=== PATIENT | female | born 1980 | race African-American/Black ===

== ENCOUNTER 2016-06-07 20:25 | Emergency (ER) | payer OTHER ==
[~2016-06-07] VITALS: Ht 165.1 cm; Wt 99.8 kg
[~2016-06-07 20:25] MED LIST: ANUSOL HC-HEMOR1 SUP RC; AUGMENTIN 875 M1 TAB PO; AUGMENTIN 875-1 EACH PO; FIORICET 50-301 EACH PO; PERCOCET 325 MG1 TA2 PO
--- NOTE | 2016-06-07 21:01 | ED GENERAL ADULT ---
History of Present Illness General Chief Complaint: Dizziness Stated Complaint: DIZZY Source: patient Exam Limitations: no limitations Vital Signs & Intake/Output Vital Signs & Intake/Output Vital Signs Date Time Temp Pulse Resp B/P Pulse O2 O2 Flow FiO2 Ox Delivery Rate 06/07 2230 96.8 65 18 109/70 100 Room Air 06/07 2125 Room Air 06/07 2034 96.9 68 18 110/71 100 Room Air Allergies Coded Allergies: NO KNOWN ALLERGIES (02/16/16) Reconcile Medications Meclizine HCl 25 MG TABLET 1 TAB PO Q8 PRN dizziness Triage Note: PT TO ED WITH INTERMITTENT DIZZINESS SINCE YESTERDAY. DENIES CP, SOB, MULLEN. PT'S SIG OTHER IS ALSO BEING SEEN IN THE ED WELL. Triage Nurses Notes Reviewed? yes : No Patient currently breastfeeds: No HPI: Patient is a 36-year-old female presents complaining of off balance sensation. Patient reports symptoms started yesterday. Symptoms are currently minimal. Patient reports the episodes occur primarily when she goes from a lying to standing position and sometimes from a sitting to standing position. Patient feels like she is going to fall over when ambulating after she changes positions. Pain is 0 out of 10. Patient denies chest pain, difficulty breathing, nausea, vomiting, headache. Patient had similar symptoms approximately 3 years ago after giving that lasted for 4-5 months, has not had any episodes since then. (NATALIE BOX) Past History Travel History Traveled to [place] past 21 day No Medical History Any Pertinent Medical History? see below for history Neurological: dizziness EENT: NONE Cardiovascular: NONE Respiratory: NONE Gastrointestinal: HEMMORHOIDS Hepatic: NONE Renal: NONE Musculoskeletal: NONE Psychiatric: NONE Endocrine: NONE Blood Disorders: NONE Cancer(s): NONE SAFETY SECURITY OFFICER/Reproductive: NONE Surgical History Surgical History: non-contributory Psychosocial History What is your primary language Turkish Tobacco Use: Current Daily Use Daily Tobacco Use Amount/Type: => 5 Cigarettes daily ETOH Use: occasional use Illicit Drug Use: denies illicit drug use Family History Hx Contributory? No (NATALIE BOX) Review of Systems Review of Systems Constitutional: Denies: chills, fever. EENTM: Denies: blurred vision, visual changes. Respiratory: Denies: cough, short of breath. Cardiovascular: Denies: chest pain, syncope. GI: Reports: nausea. Denies: abdominal pain, vomiting. Musculoskeletal: Reports: no symptoms. Skin: Reports: no symptoms. Neurological/Psychological: Denies: headache, numbness, unable to move lower ext, unable to move upper ext, weakness. Hematologic/Endocrine: Denies: bruising, bleeding. Immunologic/Allergic: Denies: splenectomy. (NATALIE BOX) Physical Exam Physical Exam General Appearance: well developed/nourished, alert, awake Head: atraumatic, normal appearance Eyes: Bilateral: normal appearance, PERRL, EOMI. Ears, Nose, Throat: normal pharynx, normal ENT inspection, hearing grossly normal Neck: normal inspection, supple, full range of motion Respiratory: normal breath sounds, chest non-tender, no respiratory distress, lungs clear Cardiovascular: regular rate/rhythm (no murmur) Gastrointestinal: soft, non-tender Back: normal inspection, normal range of motion Extremities: normal inspection, normal capillary refill, normal range of motion, no edema Neurologic/Psych: no motor/sensory deficits, awake, alert, oriented x 3, normal gait, normal mood/affect Skin: intact, normal color, warm/dry Lymphatic: no anterior cervical susan Core Measures ACS in differential dx? No CVA/TIA Diagnosis: No Severe Sepsis Present: No Septic Shock Present: No (NATALIE BOX) Progress Differential Diagnoses I considered the following diagnoses in my evaluation of the patient: vertigo central vs peripheral, electrolyte abnormality, orthostasis Plan of Care: Orders Procedure Date/time Status MISTAKE 06/08 2107 Active COMPREHENSIVE METABOLIC PANEL 06/08 2107 Complete CBC WITHOUT DIFFERENTIAL 06/08 2107 Complete URINE 06/07 2037 Complete Laboratory Tests 06/07/162122: Anion Gap 9, Estimated GFR > 60, BUN/Creatinine Ratio 13.3, Glucose 86, Calcium 9.5, Total Bilirubin 0.3, AST 20, ALT 39, Alkaline Phosphatase 76, Total Protein 7.4, Albumin 4.1, Globulin 3.3, Albumin/Globulin Ratio 1.2, CBC w Diff NO MAN DIFF REQ, RBC 4.38, MCV 87.2, MCH 29.4, RDW 14.3, MPV 7.8, Gran % 31.0 L, Lymphocytes % 53.6 H, Monocytes % 11.1 H, Eosinophils % 4.0, Basophils % 0.3, Absolute Granulocytes 1.5, Absolute Lymphocytes 2.6, Absolute Monocytes 0.5, Absolute Eosinophils 0.2, Absolute Basophils 0, PUBS MCHC 33.7 06/07/162042: Urine Test NEGATIVE 06/07/2016 9:56:15 PM: Patient reports feeling improved. Results of labs discussed with patient. Patient appears stable for discharge. No acute neurologic abnormalities, neuro imaging deferred. (NATALIE BOX) Initial ED EKG: none (NATALIE BOX) Departure Departure Time of Disposition: 2155 Disposition: HOME OR SELF CARE Condition: Stable Clinical Impression Primary Impression: Vertigo Referrals: ZAKIA GARCIA MD PATIENT HAS NO PRIMARY CARE DR (PCP/Family) Additional Instructions: Increase your fluid intake. Follow-up with Dr. Garcia to establish a primary doctor and for further evaluation. Return to the ER if worsening of symptoms. Departure Forms: Customer Survey General Discharge Information Prescriptions: Current Visit Scripts Meclizine HCl 1 TAB PO Q8 PRN dizziness #12 TAB (NATALIE BOX) PA/[employer] Co-Sign Statement Statement: ED Attending supervision documentation- [] I saw and evaluated the patient. I have also reviewed all the pertinent lab results and diagnostic results. I agree with the findings and the plan of care as documented in the PA's/[employer]'s documentation. [x] I have reviewed the ED Record and agree with the PA's/[employer]'s documentation. [] Additions or exceptions (if any) to the PAs/[employer]'s note and plan are summarized below: [] (ARGENIS FOREMAN,ANTONIETA Black) Critical Care Note Critical Care Note Critical Care Time: non-applicable (NATALIE BOX)
[2016-06-07 21:32] LABS: ABSOLUTE BASOPHIL COUNT 0 /CUMM (0.0-0.2); ABSOLUTE EOSINOPHIL COUNT 0.2 /CUMM (0.0-0.7); ABSOLUTE GRANULOCYTE CT 1.5 /CUMM (1.4-6.5); ABSOLUTE LYMPH COUNT 2.6 /CUMM (1.2-3.4); ABSOLUTE MONOCYTE COUNT 0.5 /CUMM (0.10-0.60); BASOPHIL % 0.3 % (0.0-2.0); HEMATOCRIT 38.2 % (37-47); MEAN CORPUSCULAR HGB 29.4 PG (27.0-31.0); MEAN CORPUSCULAR HGB CONC 33.7 G/DL (33.0-37.0); MEAN CORPUSCULAR VOLUME 87.2 FL (81.0-99.0); MEAN PLATELET VOLUME 7.8 FL (7.4-10.4); PLATELET COUNT 250 /CUMM (130-400); RBC DISTRIBUTION WIDTH 14.3 % (11.5-14.5); RED BLOOD CELL CT 4.38 /CUMM (4.20-5.40); WHITE BLOOD CELL COUNT 4.8 /CUMM (4.8-10.8)
[2016-06-07] MEDS ORDERED: MECLIZINE HCL25 MG PO (21:57)
[2016-06-07 22:31] VITALS: BP 109/70
== END 2016-06-07 22:39 ==
LOC: ERH 20:25
PROVIDERS: Physician Assistant
DX: R42 Dizziness and giddiness (principal)
CPT/HCPCS: 81025